=== PATIENT | male | born 1965 | race Caucasian/White ===

== ENCOUNTER → 2017-07-21 | Outpatient (CLI) | payer BC ==
[~2017-07-21] MED LIST: AMIT10 PO; CYCL10 PO; HYDACE10B PO; HYDACE5 PO; IBUP800 PO; METCAR750 PO; NAPR500 PO; OXYACE10 PO; OXYACE7.5T PO; PRED20 PO; ZOLP5 PO
[2017-07-22 14:42] LABS: Stool Occult Bld Immuno 1 Negative (NEGATIVE)
== END | disposition home or self-care (01) ==
LOC: LAB 04:40 → LAB SHORT 04:40 → LAB FUT 07-16 06:35
PROVIDERS: Physician Assistant Medical
DX: Z00.00 Encounter for general adult medical examination without abnormal findings (principal); Z13.811 Encounter for screening for lower gastrointestinal disorder; N39.0 Urinary tract infection, site not specified; E29.1 Testicular hypofunction; R53.83 Other fatigue; E11.9 Type 2 diabetes mellitus without complications; N40.0 Benign prostatic hyperplasia without lower urinary tract symptoms; E03.8 Other specified hypothyroidism; N42.89 Other specified disorders of prostate
CPT/HCPCS: 82274